=== PATIENT | male | born 1950 | race Caucasian/White ===

== ENCOUNTER 2021-06-05 14:02 | Observation (INO) | payer MEDICARE, SELFPAY ==
[2021-06-05 14:04] VITALS: BP 173/120; PULSE 61; RESP 18; TEMP 36.9; O2SAT 99; BMI 33.0
--- NOTE | 2021-06-05 14:17 | ECG_ITS ---
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 Measurements Intervals [place] Rate: 57 P: -6 VT: 171 QRS: 13 QRSD: 112 T: 53 QT: 411 QTc: 403 Interpretive Statements SINUS BRADYCARDIA MODERATE INTRAVENTRICULAR CONDUCTION DELAY [110+ ms QRS DURATION] No previous ECG available for comparison Electronically Signed On 06-07-2021 8:54:01 PROGRAM COORDINATOR by Jonathan Powell M.D. [id number]
[2021-06-05 14:19] VITALS: BP 165/96; PULSE 58; RESP 14; O2SAT 98
--- NOTE | 2021-06-05 14:51 | ECG_ITS ---
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 Measurements Intervals [place] Rate: 56 P: 3 SD: 174 QRS: 13 QRSD: 107 T: 59 QT: 409 QTc: 397 Interpretive Statements SINUS BRADYCARDIA Compared to ECG 06/05/2021 14:41:23 Intraventricular conduction delay no longer present Electronically Signed On 06-07-2021 8:53:58 SOLIDS CONTROL TECHNICIAN by Jonathan Powell M.D. [email or web address] [id number] f
[2021-06-05 14:57] LABS: Basophils % 0.7 %; Eosinophils # 0.2 10^3/uL (0.0-0.8); Hematocrit 49.4 % (42.0-52.0); Hemoglobin 16.6 g/dL (11.7-16.6); Lymphocytes # 1.4 10^3/uL (0.8-4.8); Lymphocytes % 25.3 %; Mean Corpuscular HGB Conc 33.6 g/dL (30.0-36.0); Mean Corpuscular Hemoglobin 31.7 pg (28.0-34.0); Mean Corpuscular Volume 94.5 fl (80-94); Mean Platelet Volume 10.1 fL (7.4-10.4); Monocytes # 0.5 10^3/uL (0.2-0.9); Neutrophils # 3.28 10^3/uL (1.8-7.7); Neutrophils % 60.6 %; Nucleated Red Blood Cells % 0 %; Platelet Count 261 10^3/cmm (130-400); Red Blood Count 5.23 10^6/uL (4.1-5.3); Red Cell Distribution Width 12.2 % (12.1-15.1); White Blood Count 5.4 10^3/uL (4.0-10.0)
--- NOTE | 2021-06-05 15:01 | ED_ITS ---
HPI - General Adult General: Chief complaint: Abdominal Pain Stated complaint: Chest pain Time Seen by Provider: 06/05/21 14:16 History of Present Illness: Patient is a 71-year-old male with history of high blood pressure who presents emergency with complaints of light-headedness, near syncope , chest pain, shortness of breath and generalized weakness since 1 PM this afternoon. Patient was at home recently called his son around 1 PM with complaints of the symptoms. Patient says he is not able to get up at home. Patient son called EMS patient was brought to the emergency room. On arrival, patient tells me that he has left upper quadrant dull pain with blurriness of vision. Patient reported mild transient chest pressure and shortness of breath. Patient not smoking, drug use or alcohol use. Patient tells me that recently his . For the last week or so he has been mourning his . Last week he had a trip and fell at home and has had complaints of generalized abdominal pain. Patient denies any nausea/vomiting fever/chills, diarrhea, melena hematochezia. Patient reports no cough, nasal congestion body ache. Onset:1pm Duration:ongoing Location:home Severity:moderate/severe Associated symptoms: Reports chest pain and dyspnea; Deny nausea, rash, palpitations or vomiting Review of Systems Const: Reports: other (+generalized weakness); Denies: fever(s) or chills Eyes: Denies: change in vision ENMT: Denies: mouth pain Card: Reports: chest pain; Denies: palpitations Resp: Reports: dyspnea; Denies: non-productive cough GI: Reports: abdominal pain (+LUQ); Denies: nausea, vomiting or diarrhea : Denies: dysuria Musc: Denies: extremity pain Skin/Breast: Denies: rash or new lesions Neuro: Denies: weakness in extremities Psych: Reports: other (Normal mood) Angel/Lymph: Denies: easy bruising PFSH ED PFSH: Medical History (Updated 06/05/21 @ 15:04 by Annette Slaughter MD) Hypertension Social History (Updated 06/05/21 @ 15:04 by Annette Slaughter MD) Smoking and tobacco status: never smoked Alcohol intake: never Substance/Drug Use: never Physical Exam Const: COMMON NORMALS: alert HENMT: COMMON NORMALS: atraumatic HEAD & SCALP: atraumatic MOUTH: moist mucous membranes not abnormal Eye: COMMON NORMALS: EOMs intact bilaterally and conjunctivae normal CONJUNCTIVA: Yes conjunctivae normal Neck/C-Spine: COMMON NORMALS: full ROM and supple Resp: COMMON NORMALS: normal respiratory effort and clear to auscultation bilaterally AUSCULTATION: clear to auscultation bilaterally Cardio: COMMON NORMALS: regular rate RATE: regular rate OTHER: 2+ UE pulses b/l GI: COMMON NORMALS: Soft to palpation and non-tender PALPATION: Yes Soft to palpation Extremity: COMMON NORMALS: full ROM Neuro: SENSORIUM/ORIENTATION: Yes alert MOTOR EXAM: No Abnormal motor strength present and Other motor observations present (no focal motor deficits) Psych: COMMON NORMALS: speech normal SPEECH: Yes normal speech MOOD & AFFECT: Yes euthymic mood Course Vital Signs: Vital signs: Vital Signs Temperature 98.5 F 06/05/21 14:04 Pulse Rate 59 L 06/05/21 16:36 Respiratory Rate 16 06/05/21 16:36 Blood Pressure 180/98 06/05/21 16:36 Pulse Oximetry 99 06/05/21 16:36 [facility] - General Adult Medical Decision Making 71-year-old male with history of hypertension who presents the emergency room with complaints of lightheadedness, fatigue, near syncope since 1 PM. Arrival, patient has no complaints of chest pain. Patient is noted to hemodynamically stable and regular rhythm with mild bradycardia. EKG does not appear to show any signs of ischemia. Troponin x1 within normal limit. Have attempted on multiple occasions to give patient to ambulate however patient felt lightheaded upon ambulation. I performed shared decision making with patient and family, given concerns for multiple episodes of syncope, patient elects to stay in the hospital for echo and stress test. He verbalized understanding at it is weekend may not be stressed until Monday. Disposition: admission Lab Data : 06/05/21 14:33 06/05/21 14:33 Radiology Impressions Abdomen/Pelvis CT 06/05/21 15:36 IMPRESSION: 1. No acute abnormality identified in the abdomen or pelvis. 2. 8 mm nonobstructing left renal calculus. COMMENTS: Consistent with the [employer]'s Incidental Findings Committee white paper (J Am Aimee Radiol 2018): Any incidental renal lesion less than 1 cm or classified as too small to characterize, or any incidental cystic renal lesion characterized as simple-appearing, is likely benign. No follow-up imaging is recommended for these lesions per consensus recommendations based on imaging criteria. Laboratory Results WBC 5.4 10^3/uL (4.0-10.0) 06/05/21 14: RBC 5.23 10^6/uL (4.1-5.3) 06/05/21 14: Hgb 16.6 g/dL (11.7-16.6) 06/05/21 14: Hct 49.4 % (42.0-52.0) 06/05/21 14: MCV 94.5 fl (80-94) H 06/05/21 14: MCH 31.7 pg (28.0-34.0) 06/05/21 14: MCHC 33.6 g/dL (30.0-36.0) 06/05/21: RDW 12.2 % (12.1-15.1) 06/05/21 14: Plt Count 261 10^3/cmm (130-400) 06/05/21 14: MPV 10.1 fL (7.4-10.4) 06/05/21 14: Neut % (Auto) 60.6 % 06/05/21 14:33 Lymph % (Auto) 25.3 % 06/05/21 14:33 [place] % (Auto) 10.0 % 06/05/21 14: Eos % (Auto) 3.0 % 06/05/21 14: Baso % (Auto) 0.7 % 06/05/21: Neut # (Auto) 3.28 10^3/uL (1.8-7.7) 06/05/21 14: Lymph # (Auto) 1.4 10^3/uL (0.8-4.8) 06/05/21 14: [place] # (Auto) 0.5 10^3/uL (0.2-0.9) 06/05/21 14: Eos # (Auto) 0.2 10^3/uL (0.0-0.8) 06/05/21 14: Baso # (Auto) 0.0 10^3/uL (0.0-0.1) 06/05/21 14:33 Nucleated RBC % (auto) 0 % 06/05/21 14:33 Nucleated RBCs # 0.0 /100WBC 06/05/21 14:33 Sodium 139 mmol/L (136-145) 06/05/21 14:33 Potassium 4.1 mmol/L (3.5-5.1) 06/05/21 14:33 Chloride 104 mmol/L (98-107) 06/05/21 14:33 Carbon Dioxide 21 mmol/L (22-29) L 06/05/21 14:33 Anion Gap 18.1 (5-19) 06/05/21 14:33 BUN 11 mg/dL (8-23) 06/05/21 14:33 Creatinine 1.0 mg/dL (0.7-1.2) 06/05/21 14:33 GFR Calculation 73.9 mL/min (90-130) L 06/05/21 14:33 Glucose 105 mg/dL (65-115) 06/05/21 14:33 Calculated Osmolality 288 mOsm/kg (285-295) 06/05/21 14:33 Calcium 8.7 mg/dL (8.5-10.5) 06/05/21 14:33 Total Bilirubin 0.4 mg/dL (0.15-1.2) 06/05/21 14:33 AST 21 U/L (0-40) 06/05/21 14:33 ALT 33 U/L (0-41) 06/05/21 14:33 Alkaline Phosphatase 86 IU/L (40-130) 06/05/21 14:33 Troponin T Baseline 8 ng/L (0-15) 06/05/21 14:33 Total Protein 7.1 g/dL (6.6-8.7) 06/05/21 14:33 Albumin 4.3 g/dL (3.5-5.2) 06/05/21 14:33 Globulin 2.8 g/dL (1.3-4.6) 06/05/21 14:33 Lipase 17 U/L (13-60) 06/05/21 14:33 Urine Color Yellow (Yellow) 06/05/21 15:46 Urine Appearance Clear (CLEAR) 06/05/21 15:46 Urine pH 6 (5-7) 06/05/21 15:46 Ur Specific [place] 1.005 (1.005-1.030) 06/05/21 15:46 Urine Protein Neg (Negative) 06/05/21 15:46 Urine Glucose (UA) Norm (Normal) 06/05/21 15:46 Urine Ketones Negative (Negative) 06/05/21 15:46 Urine Blood Neg (Negative) 06/05/21 15:46 Urine Nitrate Negative (Negative) 06/05/21 15:46 Urine Bilirubin Neg (Negative) 06/05/21 15:46 Urine Urobilinogen Norm mg/dL (Negative) 06/05/21 15:46 Ur Leukocyte Esterase Negative (Negative) 06/05/21 15:46 Imaging Data Other Imaging: Radiologist's impression: [email or web address] [address] [address] [address] Scan Report Signed Patient: Danilo Thornton Unit #: [id number] : 1950 Age/Sex: 71 / M ADM Date: 06/05/21 Loc: ER Room/Bed: Attending Dr: Ordering Provider/Ordering MD: Annette Slaughter MD Date of Service: 06/05/21 Procedure(s): CT abdomen pelvis w con* [id number] Accession Number(s): [id number] Report Number: [id number] PROCEDURE INFORMATION: Exam: CT Abdomen And Pelvis With Contrast Exam date and time: 06/05/2021 3:36 PM Age: 71 years old Clinical indication: Abdominal pain; Localized; Lower; Additional info: Eval abd pain TECHNIQUE: Imaging protocol: Computed tomography of the abdomen and pelvis with contrast. Radiation optimization: All CT scans at this facility use at least one of these dose optimization techniques: automated exposure control; mA and/or kV adjustment per patient size (includes targeted exams where dose is matched to clinical indication); or iterative reconstruction. Contrast material: OMNI 300; Contrast volume: 95 ml; Contrast route: INTRAVENOUS (IV);? COMPARISON: No relevant prior studies available. RADIATION DOSE METRICS: Total DLP (mGy-cm): 1822.15 FINDINGS: Heart: Coronary artery calcifications. Liver: Normal. No mass. Gallbladder and bile ducts: Partially contracted gallbladder. The bile ducts are normal. Pancreas: Normal. No ductal dilation. Spleen: Normal. No splenomegaly. Adrenal glands: Normal. No mass. Kidneys and ureters: Fluid density cysts in the left kidney, Hounsfield units less than 20. Small cortical lesion in the right kidney is too small to characterize but is most likely a cyst. No follow-up imaging recommended. 8 mm calculus in the inferior left kidney. No ureteral calculus or hydronephrosis. Stomach and bowel: Unremarkable. No obstruction. No mucosal thickening. Appendix: Appendix Intraperitoneal space: Unremarkable. No free air. No significant fluid collection. Vasculature: Arterial calcifications. No aneurysm. Lymph nodes: Unremarkable. No enlarged lymph nodes. Urinary bladder: Unremarkable as visualized. Reproductive: Mildly enlarged inhomogenous prostate. Bones/joints: Degenerative changes of the spine. No fracture. Soft tissues: Small fat containing umbilical hernia. CT/CT abdomen pelvis w con* [id number] IMPRESSION: 1. No acute abnormality identified in the abdomen or pelvis. 2. 8 mm nonobstructing left renal calculus. ? COMMENTS: Consistent with the [employer]'s Incidental Findings Committee white paper (J Am Aimee Radiol 2018): Any incidental renal lesion less than 1 cm or classified as too small to characterize, or any incidental cystic renal lesion characterized as simple-appearing, is likely benign. No follow-up imaging is recommended for these lesions per consensus recommendations based on imaging criteria. ? Dictated By: Fransisco Basilio Signed By: Fransisco Basilio Signed Date/Time: 06/05/21 1632 DD/ 1536 Discharge Plan Discharge Prescriptions: No Action tamsulosin 0.4 mg capsule 0.4 mg PO BEDTIME 0RF pantoprazole 40 mg tablet,delayed release (DR/EC) 40 mg PO BID 0RF losartan-hydrochlorothiazide 50-12.5 mg tablet 1 tab PO DAILY 0RF metoprolol tartrate 25 mg tablet 25 mg PO BID 0RF aspirin 81 mg Capsule 81 mg PO DAILY 0RF Coding Level of Care Code ED Paint Maker for Chg Fwd Exam Comprehensive
[2021-06-05 15:13] LABS: Troponin(5th) Baseline 8 ng/L (0-15)
[2021-06-05 15:14] LABS: Alanine Aminotransferase 33 U/L (0-41); Albumin Level 4.3 g/dL (3.5-5.2); Alkaline Phosphatase 86 IU/L (40-130); Blood Urea Nitrogen 11 mg/dL (8-23); Calcium 8.7 mg/dL (8.5-10.5); Carbon Dioxide 21 mmol/L (22-29); Chloride 104 mmol/L (98-107); Globulin 2.8 g/dL (1.3-4.6); Glomerular Filtration Rate 73.9 mL/min (90-130); Glucose 105 mg/dL (65-115); Lipase 17 U/L (13-60); Osmolality Calculated 288 mOsm/kg (285-295); Sodium 139 mmol/L (136-145); Total Bilirubin 0.4 mg/dL (0.15-1.2); Total Protein 7.1 g/dL (6.6-8.7)
[2021-06-05 15:26] VITALS: BP 152/87; PULSE 54; RESP 14; O2SAT 96
[2021-06-05 15:29] LABS: Anion Gap 18.1 (5-19); Aspartate Amino Transferase 21 U/L (0-40); Potassium 4.1 mmol/L (3.5-5.1)
--- NOTE | 2021-06-05 15:36 | CTR_ITS ---
PROCEDURE INFORMATION: Exam: CT Abdomen And Pelvis With Contrast Exam date and time: 06/05/2021 3:36 PM Age: 71 years old Clinical indication: Abdominal pain; Localized; Lower; Additional info: Eval abd pain TECHNIQUE: Imaging protocol: Computed tomography of the abdomen and pelvis with contrast. Radiation optimization: All CT scans at this facility use at least one of these dose optimization techniques: automated exposure control; mA and/or kV adjustment per patient size (includes targeted exams where dose is matched to clinical indication); or iterative reconstruction. Contrast material: OMNI 300; Contrast volume: 95 ml; Contrast route: INTRAVENOUS (IV); COMPARISON: No relevant prior studies available. RADIATION DOSE METRICS: Total DLP (mGy-cm): 1822.15 FINDINGS: Heart: Coronary artery calcifications. Liver: Normal. No mass. Gallbladder and bile ducts: Partially contracted gallbladder. The bile ducts are normal. Pancreas: Normal. No ductal dilation. Spleen: Normal. No splenomegaly. Adrenal glands: Normal. No mass. Kidneys and ureters: Fluid density cysts in the left kidney, Hounsfield units less than 20. Small cortical lesion in the right kidney is too small to characterize but is most likely a cyst. No follow-up imaging recommended. 8 mm calculus in the inferior left kidney. No ureteral calculus or hydronephrosis. Stomach and bowel: Unremarkable. No obstruction. No mucosal thickening. Appendix: Appendix Intraperitoneal space: Unremarkable. No free air. No significant fluid collection. Vasculature: Arterial calcifications. No aneurysm. Lymph nodes: Unremarkable. No enlarged lymph nodes. Urinary bladder: Unremarkable as visualized. Reproductive: Mildly enlarged inhomogenous prostate. Bones/joints: Degenerative changes of the spine. No fracture. Soft tissues: Small fat containing umbilical hernia. CT/CT abdomen pelvis w con* [id number] IMPRESSION: 1. No acute abnormality identified in the abdomen or pelvis. 2. 8 mm nonobstructing left renal calculus. COMMENTS: Consistent with the [place] [employer]'s Incidental Findings Committee white paper (J Am Aimee Radiol 2018): Any incidental renal lesion less than 1 cm or classified as too small to characterize, or any incidental cystic renal lesion characterized as simple-appearing, is likely benign. No follow-up imaging is recommended for these lesions per consensus recommendations based on imaging criteria.
[2021-06-05] MEDS: iohexol 300 mg/mL 100 mL Btl IV (15:51)
[2021-06-05 16:04] LABS: Add Urine Microscopic? NO; Charge for UA Resulting for Rev
[2021-06-05 16:16] LABS: Bilirubin Urine Neg (Negative); Blood Urine Neg (Negative); Glucose Urine UA Norm (Normal); Ketones Urine Negative (Negative); Leukocyte Esterase Urine Negative (Negative); Nitrate Urine Negative (Negative); Protein Urine Neg (Negative); Specific Gravity, Urine 1.005 (1.005-1.030); Urine Appearance Clear (CLEAR); Urine Color Yellow (Yellow); Urobilinogen Urine Norm (Negative); pH Urine 6 (5-7)
--- NOTE | 2021-06-05 16:17 | ECG_ITS ---
[facility] Test Date: 2021-06-05 Pat Name: Danilo Thornton Department: Room: Gender: Male Sap Bw Bi Developer: : 1950 Requested By: Annette Slaughter Order Number: [id number] Srinivas MD: Jonathan Powell M.D. Measurements Intervals [place] Rate: 55 P: 0 IA: 177 QRS: -14 QRSD: 111 T: 49 QT: 417 QTc: 400 Interpretive Statements SINUS BRADYCARDIA MODERATE INTRAVENTRICULAR CONDUCTION DELAY [110+ ms QRS DURATION] Compared to ECG 06/05/2021 14:41:23 No significant changes Electronically Signed On 06-07-2021 9:03:20 CHIEF TRANSFER AND PUMPHOUSE OPERATOR by Jonathan Powell M.D. [id number]
[2021-06-05 16:36] VITALS: BP 180/98; PULSE 59; RESP 16; O2SAT 99
--- NOTE | 2021-06-05 16:50 | XRR_ITS ---
PROCEDURE INFORMATION: Exam: XR Chest Exam date and time: 06/05/2021 4:50 PM Age: 71 years old Clinical indication: Pain; Chest pressure; Additional info: Chest pain TECHNIQUE: Imaging protocol: XR of the chest. Views: 1 view. COMPARISON: CT abdomen pelvis w con* [id number] 06/05/2021 3:50 PM FINDINGS: Lungs: Unremarkable. No consolidation. Pleural spaces: Unremarkable. No pleural effusion. No pneumothorax. Heart/Mediastinum: Unremarkable. No cardiomegaly. Bones/joints: Unremarkable. XR/XR chest 1V portable [id number] IMPRESSION: No acute findings.
--- NOTE | 2021-06-05 16:55 | CTR_ITS ---
PROCEDURE INFORMATION: Exam: CT Head Without Contrast Exam date and time: 06/05/2021 4:55 PM Age: 71 years old Clinical indication: Dizziness; Additional info: Eval for pathologies TECHNIQUE: Imaging protocol: Computed tomography of the head without contrast. Radiation optimization: All CT scans at this facility use at least one of these dose optimization techniques: automated exposure control; mA and/or kV adjustment per patient size (includes targeted exams where dose is matched to clinical indication); or iterative reconstruction. COMPARISON: No relevant prior studies available. RADIATION DOSE METRICS: Total DLP (mGy-cm): 971.84 FINDINGS: Brain: Mild cortical volume loss, appropriate for patient age. No abnormal brain attenuation. No intracranial hemorrhage. Cerebral ventricles: No ventriculomegaly. Paranasal sinuses: Mucosal thickening in the left sphenoid sinus. The other sinuses are clear. Mastoid air cells: Visualized mastoid air cells are well aerated. Bones/joints: Unremarkable. No acute fracture. Soft tissues: Small lipoma in the left occipital scalp. The soft tissues are otherwise unremarkable. CT/CT head wo con* [id number] IMPRESSION: 1. No acute intracranial abnormality.
[2021-06-05] MEDS: sodium chloride 0.9% 1,000 ML 999 ML IV (17:15)
[2021-06-05] MEDS: hyDRALAzine 20 mg/mL INJ 1 mL 10 MG IVP (17:18)
[2021-06-05 17:46] LABS: Troponin 5 2HR 9.05 ng/L (0-15)
[2021-06-05 18:05] LABS: Troponin 5 2HR Delta 1.05 ABS# (0-10)
[2021-06-05 18:35] LABS: Adenovirus Not Detected (NOT DETECT); Chlamydia Pneumoniae Not Detected (NOT DETECT); Coronavirus 229E,HKU1,NL63,OC4 Not Detected (NOT DETECT); Human Metapneumovirus Not Detected (NOT DETECT); Human Rhinovirus/Enterovirus Not Detected (NOT DETECT); Influenza A Not Detected (NOT DETECT); Influenza A H1 Not Detected (NOT DETECT); Influenza A H1-2009 Not Detected (NOT DETECT); Influenza A H3 Not Detected (NOT DETECT); Influenza B Not Detected (NOT DETECT); Mycoplasma Pneumoniae Not Detected (NOT DETECT); Parainfluenza Virus Type 1 Not Detected (NOT DETECT); Parainfluenza Virus Type 2 Not Detected (NOT DETECT); Parainfluenza Virus Type 3 Not Detected (NOT DETECT); Parainfluenza Virus Type 4 Not Detected (NOT DETECT); Respiratory Syncytial Virus A Not Detected (NOT DETECT); Respiratory Syncytial Virus B Not Detected (NOT DETECT); SARS-COV-2 Not Detected (NOT DETECT)
[2021-06-05 19:18] VITALS: BP 156/81; PULSE 53; RESP 19; O2SAT 98
--- NOTE | 2021-06-05 20:28 | PM.HP ---
Providers/Chief Complaint Admitting Physician: Mohini Adamson MD Chief Complaint: Chest pain History of Present Illness Danilo Thornton is a 71 year old male with a past medical history of hypertension, hyperlipidemia, GERD who presents to [facility] due to lightheadedness, dizziness, presyncope. Patient tells me that today at roughly 2:30 PM, he was getting up from his chair, when when he got up he felt lightheaded, uneasy, no preceding chest pain, no palpitations, shortness of breath, no paresthesias, no focal weakness, no facial droop no slurring of his words, he felt everything white out, denies falling down, denies head trauma, but felt like he was in a pass out but never passed out. He tells me that this is happened a couple times in the last few months. Patient tells me that he has been under a lot of stress over the last few years to months because his has been sick. Unfortunately on May 26, 2021, she , he is quite distraught, becomes quite emotional starts to cry, he tells me that they were for about 47 years, he loved her, she used to take care of him, but when she got sick he was primarily taking care of her, he did not have time for himself, now that she is gone, he lives by himself, he has 3 kids. Denies any cardiovascular history. Denies history of strokes. No history of lung disease. No history of smoking. No history of diabetes. No history of cardiac arrhythmias. Patient's work-up in the emergency room was relatively unremarkable, no significant electrolyte abnormalities, no significant opponent elevation, EKG shows sinus bradycardia, intraventricular conduction delay, CT head no acute findings, UA unremarkable, chest x-ray no focal pneumonia, Covid negative. During my examination, during my conversation with him, I was monitoring the color television console monitor, and did notice a couple sinus pauses, longest measuring 1 second, he was asymptomatic during these events Review of Systems Const: Denies: fever(s), chills, fatigue or malaise Eyes: Reports: change in vision and blurry vision ENMT: Denies: nasal congestion Card: Reports: lightheadedness and pre-syncope; Denies: chest pain, palpitations, dyspnea on exertion or orthopnea Resp: Denies: dyspnea, productive cough, non-productive cough or wheezing GI: Denies: abdominal pain, nausea, vomiting, hematemesis, diarrhea, constipation, hematochezia or melena : Denies: flank pain, difficulty urinating, dysuria or urinary frequency Musc: Denies: neck pain or back pain Skin/Breast: Denies: rash Neuro: Reports: dizziness; Denies: headache(s) or vertigo Psych: Denies: anxiety or depression Endo: Denies: polyuria or polydipsia Medications/Allergies Home Medications Medication Instructions Recorded Confirmed Last Taken Type aspirin 81 mg capsule 81 mg PO DAILY 06/05/21 06/05/21 Unknown History losartan 50 mg-hydrochlorothiazide 1 tab PO DAILY 06/05/21 06/05/21 Unknown History 12.5 mg tablet metoprolol tartrate 25 mg tablet 25 mg PO BID 06/05/21 06/05/21 Unknown History pantoprazole 40 mg tablet,delayed 40 mg PO BID 06/05/21 06/05/21 Unknown History release tamsulosin 0.4 mg capsule 0.4 mg PO BEDTIME 06/05/21 06/05/21 Unknown History Allergies Allergy/AdvReac Type Severity Reaction Status Date / Time No Known Allergies Allergy Unverified 06/05/21 16:25 PFSH Acute PFSH: Medical History (Updated 06/05/21 @ 20:35 by Roderick Streeter MD) Hypertension Surgical History (Updated 06/05/21 @ 20:33 by Roderick Streeter MD) History of vasectomy Family History (Updated 06/05/21 @ 20:34 by Roderick Streeter MD) Mother CAD (coronary artery disease) Social History (Updated 06/05/21 @ 15:04 by Annette Slaughter MD) Smoking and tobacco status: never smoked Alcohol intake: never Substance/Drug Use: never Vitals/I&O/Wt Last Vital Signs Temp 98.5 F 06/05/21 14:04 Pulse 53 L 06/05/21 19:18 Resp 19 H 06/05/21 19:18 BP 156/81 06/05/21 19:18 Pulse Ox 98 06/05/21 19:18 Weight last 48 hrs Weight 104.326 kg Physical Exam Const: COMMON NORMALS: no acute distress and patient oriented x3 HENMT: COMMON NORMALS: normocephalic HEAD & SCALP: normocephalic Eye: COMMON NORMALS: Equal, round and reactive pupils present and EOMs intact bilaterally Neck/C-Spine: COMMON NORMALS: no JVD Lymph: LYMPHATIC: no lymphadenopathy noted Chest: COMMONS NORMALS: normal inspection of the chest Resp: COMMON NORMALS: normal respiratory effort, No retractions, No use of accessory muscles and clear to auscultation bilaterally AUSCULTATION: clear to auscultation bilaterally Cardio: COMMON NORMALS: no JVD, regular rhythm, S1 normal heart sound present and S2 normal heart sound present RATE: bradycardic RHYTHM: regular rhythm HEART SOUNDS: S1 normal heart sound present and S2 normal heart sound present GI: COMMON NORMALS: Normal to inspection, nondistended, normoactive bowel sounds present, Soft to palpation, non-tender, No hepatosplenomegaly present, no masses and no bruits PALPATION: Yes Soft to palpation and Yes No hepatosplenomegaly present Extremity: COMMON NORMALS: capillary refill normal, no clubbing, cyanosis or edema, no calf tenderness and no pedal edema Neuro: COMMON NORMALS: patient oriented x3, CN's II-XII intact bilaterally, moves all extremities, no focal motor deficits and no sensory deficits noted SENSORIUM/ORIENTATION: Yes alert, Yes oriented to person, Yes oriented to place and Yes oriented to time Psych: COMMON NORMALS: mental status grossly normal Data : 06/05/21 14:33 06/05/21 14:33 A&P Assessment and plan (1) Near syncope: Status: Acute (2) Hypertension: Status: Acute (3) Sinus bradycardia: Status: Acute (4) Sinus pause: Status: Acute (5) Light headedness: Status: Acute Plan Presyncope -We will check orthostatic vitals -Continue telemetry monitoring -Cardiac echo -Telemetry monitoring -IV hydration Sinus bradycardia, possibly secondary to beta-blockade, stop beta-tye Sinus pause, seen on telemetry, possibly second to beta-tye, stop beta-tye, possibly might require event monitor on discharge Bereavement, passing away less than 10 days ago, will consider anxiety and depression medication Full code Lovenox for DVT prophylaxis Attestations Medical Necessity Statement*: Patient requires hospitalization, outpatient with observation, for presyncope, sinus bradycardia, sinus pause Coding Level of Care Code Acute Vehicle Check In Clerk for g Fwd Diagnoses Near syncope R55 Hypertension I10 Sinus bradycardia R00.1 Sinus pause I45.5 Light headedness R42
[2021-06-05 20:34] LABS: Troponin 5 6HR 9.35 ng/L (0-15)
[2021-06-05 20:38] LABS: Troponin 5 6HR Delta 1.35 ng/L (0-12)
[2021-06-05 21:18] VITALS: BP 150/87; PULSE 61; RESP 23; O2SAT 96
[2021-06-05] MEDS: dextrose 5%-sod chloride 0.45% 1,000 ML 100 ML IV (21:37)
[2021-06-05] MEDS: tamsulosin 0.4 mg Capsule PO (22:40)
--- NOTE | 2021-06-05 22:56 | PC.NURSE ---
preferred and and sleep habit pt states he likes to go by [place], and sleeps with several pillows.
--- NOTE | 2021-06-05 22:57 | PC.NURSE ---
code status when discussing pt code status during the admission assessment, pt stated he did not want to be a full code. he did not want to be 'a vegetable'. pt stated he did not want a machine breathing for him. pt stated he wanted minimal intervention. attempt made to consult hospitalist; will attempt again.
[2021-06-06] VITALS: PULSE 59; O2SAT 98
[2021-06-06] MEDS: enoxaparin 40 mg/0.4 mL Syringe SUBCUT (01:38)
[2021-06-06 05:04] VITALS: BP 150/98; PULSE 71; RESP 17; O2SAT 97
[2021-06-06 05:10] LABS: Basophils % 0.4 %; Eosinophils # 0.1 10^3/uL (0.0-0.8); Eosinophils % 1.4 %; Hematocrit 46.8 % (42.0-52.0); Hemoglobin 16.1 g/dL (11.7-16.6); Lymphocytes # 1.9 10^3/uL (0.8-4.8); Lymphocytes % 25.8 %; Mean Corpuscular HGB Conc 34.4 g/dL (30.0-36.0); Mean Corpuscular Hemoglobin 32.1 pg (28.0-34.0); Mean Corpuscular Volume 93.2 fl (80-94); Mean Platelet Volume 10.2 fL (7.4-10.4); Monocytes # 0.6 10^3/uL (0.2-0.9); Monocytes % 8.7 %; Neutrophils # 4.58 10^3/uL (1.8-7.7); Neutrophils % 63.4 %; Nucleated Red Blood Cells % 0 %; Platelet Count 255 10^3/cmm (130-400); Red Blood Count 5.02 10^6/uL (4.1-5.3); Red Cell Distribution Width 11.9 % (12.1-15.1); White Blood Count 7.2 10^3/uL (4.0-10.0)
[2021-06-06 05:24] LABS: Estmated Average Glucose 111; Hemoglobin A1C 5.5 % (4.0-6.0)
[2021-06-06 05:25] LABS: Lactic Sepsis W/Reflex 1.7 mmol/L (0.5-2.2)
[2021-06-06 05:40] LABS: NT Pro B Type Natriuretic Pept 272 pg/mL (0-125); Procalcitonin 0.05 ng/mL (0-0.5); Thyroid Stimulating Hormone 1.85 uIU/mL (0.27-4.20)
[2021-06-06 05:45] LABS: INR 0.95 (0.8-1.2)
[2021-06-06 05:51] LABS: Alanine Aminotransferase 29 U/L (0-41); Albumin Level 4.1 g/dL (3.5-5.2); Alkaline Phosphatase 79 IU/L (40-130); Anion Gap 14.8 (5-19); Aspartate Amino Transferase 16 U/L (0-40); Blood Urea Nitrogen 9 mg/dL (8-23); Calcium 9.5 mg/dL (8.5-10.5); Carbon Dioxide 23 mmol/L (22-29); Chloride 104 mmol/L (98-107); Chol HDL Ratio 3.21 mg/dL (1.0-5.00); Cholesterol 154 mg/dL (0-200); Globulin 3.1 g/dL (1.3-4.6); Glomerular Filtration Rate 95.6 mL/min (90-130); Glucose 109 mg/dL (65-115); HDL Cholesterol 48 mg/dL (60-100); LDL Cholesterol Calculated 72 mg/dL (50-129); Magnesium 2.2 mg/dL (1.7-2.3); Osmolality Calculated 285 mOsm/kg (285-295); Phosphorus 2.4 mg/dL (2.5-4.5); Potassium 3.8 mmol/L (3.5-5.1); Sodium 138 mmol/L (136-145); Total Bilirubin 0.5 mg/dL (0.15-1.2); Total Protein 7.2 g/dL (6.6-8.7); Triglycerides 171 mg/dL (0-150)
[2021-06-06 08:27] VITALS: BP 150/98; PULSE 64; RESP 21; O2SAT 97
[2021-06-06] MEDS: dextrose 5%-sod chloride 0.45% 1,000 ML 100 ML IV (08:51)
[2021-06-06 09:07] VITALS: BP 150/98
[2021-06-06] MEDS: aspirin 81 mg Chew Tablet PO (09:07)
[2021-06-06] MEDS: hydroCHLOROthiazide 25 mg Tablet 12.5 MG PO (09:07)
[2021-06-06] MEDS: losartan 50 mg Tablet PO (09:07)
[2021-06-06] MEDS: pantoprazole DR 40 mg Tablet PO (09:08)
[2021-06-06] MEDS: polyethylene glycol 3350 Pkt 17 gm PO (09:34)
[2021-06-06 09:41] VITALS: BP 150/99; BP 162/96; BP 165/94; PULSE 70; PULSE 71; PULSE 74
--- NOTE | 2021-06-06 09:44 | PC.NURSE ---
Orthostatic VS performed and charted. Pt ambulated to restroom following orthostatic VS with steady gait, unassisted. He is CAOx4 with no neuro deficits.
--- NOTE | 2021-06-06 09:52 | PC.NURSE ---
After miralax patient had a very large BM; states feels much better.
--- NOTE | 2021-06-06 11:50 | PM.DCS ---
Discharge Providers Date of Admission: 06/05/21 16:56 Date of Discharge: June 06, 2021 Attending Provider at Admission: Mohini Adamson MD Attending Provider at Discharge: [place] Diagnoses at Discharge Discharge Diagnosis (1) Near syncope: Status: Acute (2) Hypertension: Status: Acute (3) Sinus bradycardia: Status: Acute (4) Sinus pause: Status: Acute (5) Light headedness: Status: Acute Reason for Visit Reason for Visit: Chest pain Hospital Course Hospital Course Pleasant 71-year-old gentleman with history of hypertension, nonobstructive heart disease status post cardiac cath not requiring intervention, was admitted for assessment of management following episode of lightheadedness, dizziness and presyncope. Reported while rising from a chair. In the hospital orthostatic vital signs were assessed, not found to be orthostatic, on monitoring noted to be having episodes of bradycardia down as low as 50 bpm, and early on reported to have noted sinus pauses, longest measuring 1 second. Metoprolol was stopped. He is being referred for cardiac event monitor to continue monitoring after discharge. Other antihypertensives are continued, with blood pressures variable, but coming down to 150s/90s, may benefit from continued optimization if persistently remain elevated after discharge from ER. He also reported bereavement after recent loss of his . Please follow-up on his condition. Due to additional finding of left carotid artery atherosclerosis with moderate stenosis of 50-69%, his atorvastatin dose is increased to 40 mg nightly. Please continue to assist him in optimizing risk factors of cardiovascular disease. Echocardiogram obtained in the hospital was discussed with him, of not optimal quality, grossly with normal ejection fraction, no pericardial effusion, grade 1 diastolic dysfunction. Dilated aortic root. In case of recurrent/persistent symptoms, please refer for echocardiogram with contrast. Troponin series not suggestive of acute PR. NT proBNP minimally abnormal at 272. Other tests included an unremarkable head CT. Unremarkable chest x-ray. CT abdomen pelvis without acute abnormality, with noted incidentally 8 mm nonobstructing left renal calculus. COVID-19 PCR was negative. Unremarkable UA, normal TSH. Normal lipase and nonelevated procalcitonin. Physical Exam Const: COMMON NORMALS: no acute distress and patient oriented x3 NUTRITIONAL APPEARANCE: overweight HENMT: COMMON NORMALS: oropharynx normal Neck/C-Spine: COMMON NORMALS: no JVD Resp: COMMON NORMALS: normal respiratory effort and clear to auscultation bilaterally AUSCULTATION: clear to auscultation bilaterally Cardio: COMMON NORMALS: no JVD, regular rhythm, S1 normal heart sound present, S2 normal heart sound present and No murmurs present (Cardio) RHYTHM: regular rhythm HEART SOUNDS: S1 normal heart sound present and S2 normal heart sound present GI: COMMON NORMALS: Normal to inspection, nondistended, normoactive bowel sounds present, Soft to palpation and non-tender PALPATION: Yes Soft to palpation Extremity: COMMON NORMALS: no joint enlargement and no pedal edema Neuro: COMMON NORMALS: patient oriented x3 and moves all extremities Skin: COMMON NORMALS: no rashes or lesions noted GENERAL SKIN EXAM: no rashes or lesions noted Discharge Data Studies Completed and Pending Completed Studies During Hospitalization Category Date Time Status CT abdomen pelvis w con* [id number] Urgent Cat Scan 06/05/21 15:[address] head wo con* [id number] Urgent Cat Scan 06/05/21 16:55 Completed XR chest 1V portable [id number] Urgent Exams 06/05/21 16:50 Completed CV carotid duplex BI* [id number] Routine Ultrasound 06/06/21 21:18 Completed Pending at discharge Category Date Time Status Comprehensive Metabolic Panel AM LABS Lab 06/07/21 04:00 Ordered Comprehensive Metabolic Panel AM LABS Lab 06/08/21 04:00 Ordered Magnesium AM LABS Lab 06/07/21 04:00 Ordered Magnesium AM LABS Lab 06/08/21 04:00 Ordered Phosphorus AM LABS Lab 06/07/21 04:00 Ordered Phosphorus AM LABS Lab 06/08/21 04:00 Ordered Prothrombin Time INR AM LABS Lab 06/07/21 04:00 Ordered Prothrombin Time INR AM LABS Lab 06/08/21 04:00 Ordered CV. echo complete* [id number] Routine Ultrasound 06/06/21 21:18 Taken Radiology Impressions Abdomen/Pelvis CT 06/05/21 15:36 IMPRESSION: 1. No acute abnormality identified in the abdomen or pelvis. 2. 8 mm nonobstructing left renal calculus. COMMENTS: Consistent with the [employer]'s Incidental Findings Committee white paper (J Am Aimee Radiol 2018): Any incidental renal lesion less than 1 cm or classified as too small to characterize, or any incidental cystic renal lesion characterized as simple-appearing, is likely benign. No follow-up imaging is recommended for these lesions per consensus recommendations based on imaging criteria. Chest X-Ray 06/05/21 16:50 IMPRESSION: No acute findings. Head CT 06/05/21 16:55 IMPRESSION: 1. No acute intracranial abnormality. Carotid Doppler Study 06/06/21 21:18 IMPRESSION: 1. There is soft atherosclerotic plaque in the left carotid bulb and proximal internal carotid artery with mildly elevated velocities consistent with moderate 50-69% stenosis. 2. Mild plaque in the proximal right internal carotid artery with mild stenosis. REFERENCES: SRU CRITERIA. The degree of internal carotid artery stenosis is based on criteria defined by the Society of Radiologists in Ultrasound (SRU). Normal is no stenosis. Mild is less than 50% stenosis. Moderate is 50-69% stenosis. Severe is greater than 69% stenosis to near occlusion. Near occlusion is a markedly narrowed lumen. Total occlusion is no detectable patent lumen. Laboratory Results WBC 7.2 10^3/uL (4.0-10.0) 06/06/21 04:47 RBC 5.02 10^6/uL (4.1-5.3) 06/06/21 04:47 Hgb 16.1 g/dL (11.7-16.6) 06/06/21 04:47 Hct 46.8 % (42.0-52.0) 06/06/21 04:47 MCV 93.2 fl (80-94) 06/06/21 04:47 MCH 32.1 pg (28.0-34.0) 06/06/21 04:47 MCHC 34.4 g/dL (30.0-36.0) 06/06/21 04:47 RDW 11.9 % (12.1-15.1) L 06/06/21 04:47 Plt Count 255 10^3/cmm (130-400) 06/06/21 04:47 MPV 10.2 fL (7.4-10.4) 06/06/21 04:47 Neut % (Auto) 63.4 % 06/06/21 04:47 Lymph % (Auto) 25.8 % 06/06/21 04:47 Carbon % (Auto) 8.7 % 06/06/21 04:47 Eos % (Auto) 1.4 % 06/06/21 04:47 Baso % (Auto) 0.4 % 06/06/21 04:47 Neut # (Auto) 4.58 10^3/uL (1.8-7.7) 06/06/21 04:47 Lymph # (Auto) 1.9 10^3/uL (0.8-4.8) 06/06/21 04:47 Carbon # (Auto) 0.6 10^3/uL (0.2-0.9) 06/06/21 04:47 Eos # (Auto) 0.1 10^3/uL (0.0-0.8) 06/06/21 04:47 Baso # (Auto) 0.0 10^3/uL (0.0-0.1) 06/06/21 04:47 Nucleated RBC % (auto) 0 % 06/06/21 04:47 Nucleated RBCs # 0.0 /100WBC 06/06/21 04:47 PT 13.00 SECONDS (12.1-14.9) 06/06/21 04:47 INR 0.95 (0.8-1.2) 06/06/21 04:47 Sodium 138 mmol/L (136-145) 06/06/21 04:47 Potassium 3.8 mmol/L (3.5-5.1) 06/06/21 04:47 Chloride 104 mmol/L (98-107) 06/06/21 04:47 Carbon Dioxide 23 mmol/L (22-29) 06/06/21 04:47 Anion Gap 14.8 (5-19) 06/06/21 04:47 BUN 9 mg/dL (8-23) 06/06/21 04:47 Creatinine 0.8 mg/dL (0.7-1.2) 06/06/21 04:47 GFR Calculation 95.6 mL/min (90-130) 06/06/21 04:47 Glucose 109 mg/dL (65-115) 06/06/21 04:47 Estimat Average Glucose 111 06/06/21 04:47 Hemoglobin A1c 5.5 % (4.0-6.0) 06/06/21 04:47 Calculated Osmolality 285 mOsm/kg (285-295) 06/06/21 04:47 Lactic Acid 1.7 mmol/L (0.5-2.2) 06/06/21 04:47 Calcium 9.5 mg/dL (8.5-10.5) 02/13/22 04:47 Phosphorus 2.4 mg/dL (2.5-4.5) L 06/06/21 04:47 Magnesium 2.2 mg/dL (1.7-2.3) 06/06/21 04:47 Total Bilirubin 0.5 mg/dL (0.15-1.2) 06/06/21 04:47 AST 16 U/L (0-40) 06/06/21 04:47 ALT 29 U/L (0-41) 06/06/21 04:47 Alkaline Phosphatase 79 IU/L (40-130) 06/06/21 04:47 Troponin T Baseline 8 ng/L (0-15) 06/05/21 14:33 Troponin T 120 Minute 9.05 ng/L (0-15) 06/05/21 16:33 Delta Troponin T 1.05 ABS# (0-10) 06/05/21 16:33 Troponin T Hi Sens 6Hr 9.35 ng/L (0-15) 06/05/21 20:11 Troponin T Hi Sens 6Hr Delta 1.35 ng/L (0-12) 06/05/21 20:11 NT-Pro-B Natriuret Pep 272 pg/mL (0-125) H 06/06/21 04:47 Total Protein 7.2 g/dL (6.6-8.7) 06/06/21 04:47 Albumin 4.1 g/dL (3.5-5.2) 06/06/21 04:47 Globulin 3.1 g/dL (1.3-4.6) 06/06/21 04:47 Triglycerides 171 mg/dL (0-150) H 06/06/21 04:47 Cholesterol 154 mg/dL (0-200) 06/06/21 04:47 LDL Cholesterol, Calc 72 mg/dL (50-129) 06/06/21 04:47 HDL Cholesterol 48 mg/dL (60-100) L 06/06/21 04:47 LDL/HDL Ratio 1.50 RATIO (0.00-3.22) 06/06/21 04:47 Cholesterol/HDL Ratio 3.21 mg/dL (1.0-5.00) 06/06/21 04:47 Lipase 17 U/L (13-60) 06/05/21 14:33 Procalcitonin 0.05 ng/mL (0-0.5) 06/06/21 04:47 TSH 1.85 uIU/mL (0.27-4.20) 06/06/21 04:47 Urine Color Yellow (Yellow) 06/05/21 15:46 Urine Appearance Clear (CLEAR) 06/05/21 15:46 Urine pH 6 (5-7) 06/05/21 15:46 Ur Specific Gibson 1.005 (1.005-1.030) 06/05/21 15:46 Urine Protein Neg (Negative) 06/05/21 15:46 Urine Glucose (UA) Norm (Normal) 06/05/21 15:46 Urine Ketones Negative (Negative) 06/05/21 15:46 Urine Blood Neg (Negative) 06/05/21 15:46 Urine Nitrate Negative (Negative) 06/05/21 15:46 Urine Bilirubin Neg (Negative) 06/05/21 15:46 Urine Urobilinogen Norm mg/dL (Negative) 06/05/21 15:46 Ur Leukocyte Esterase Negative (Negative) 06/05/21 15:46 Coronavirus 229E (PCR) Not detected (NOT DETECT) 06/05/21 16:36 SARS-CoV-2 (PCR) Not detected (NOT DETECT) 06/05/21 16:36 Vitals Last Vital Signs Temp 98.5 F 06/05/21 14:04 Pulse 71 06/06/21 09:41 Resp 21 H 06/06/21 08:27 BP 165/94 06/06/21 09:41 Pulse Ox 97 06/06/21 08:27 Discharge Plan Discharge Patient Disposition: Home Condition: Stable Prescriptions: New atorvastatin 40 mg tablet 40 mg PO QPM Qty: 90 0RF Continued tamsulosin 0.4 mg capsule 0.4 mg PO BEDTIME 0RF pantoprazole 40 mg tablet,delayed release (DR/EC) 40 mg PO BID 0RF losartan-hydrochlorothiazide 50-12.5 mg tablet 1 tab PO DAILY 0RF aspirin 81 mg Capsule 81 mg PO DAILY 0RF Discontinued metoprolol tartrate 25 mg tablet 25 mg PO BID 0RF Discharge Orders: Discharge Order (Routine); Ordered 06/06/21 Ordered By: Alejo Lake Other Ambulatory Orders: MCT/Event Monitor 21 Days (Routine) Timeframe: 1 Day Facility: [facility] - Location: Radiology Ordered By: Alejo Lake Referrals: Bentley Harvey MD [Referring] - 4-7 days (pre-syncope, bradycardia, bereavement) Discharge Diet: Cardiac Discharge Activity: Increase activity as tolerated Patient Instructions: Atorvastatin (By mouth), Kidney Stones (GEN), Syncope (GEN), Grief and Loss (GEN), Carotid Artery Disease (GEN), Chronic Hypertension (GEN), Bradycardia (GEN), Mediterranean Diet (GEN), Opioid Safety Activity Restrictions/Additional Instructions: Due to slow heartbeat noted during the night as well as initially reported 1 second pauses, please stop metoprolol at this time. Please follow-up to be set up with cardiac catheterization technician. Follow-up with your primary doctor regarding results, and discuss a follow-up as needed with cardiology. In the hospital when the studies performed was carotid Doppler which also showed atherosclerotic plaque in the left carotid artery showing moderate, 50-69% stenosis, unrelated to your presentation, but important to be aware of. Please resume taking cholesterol medication (atorvastatin), dose of which is increased to 40 mg daily. Continue to work with your primary doctor to optimize risk factors of cardiovascular disease. Monitor your blood pressures closely at least 3 times a day. Write down values to bring to your appointment. Incidentally on CT abdomen pelvis you are seen to have a nonobstructing 8 mm left kidney stone. Discussed with your primary doctor. Maintain low-sodium diet. Discharge Attestations Time Spent in Discharge Care*: greater than 30 min Quality Metrics Clinical Quality Measures [ No reported AMI, CVA or VTE this stay] Coding Level of Care Code Acute Chg [facility] note Diagnoses Near syncope R55 Hypertension I10 Sinus bradycardia R00.1 Sinus pause I45.5 Light headedness R42
--- NOTE | 2021-06-06 21:18 | USCV_ITS ---
Danilo Thornton Age: 71 Gender: M : 1950 Exam Date: 06/06/2021 08:35 Ordering Phys: Roderick Streeter MD Technologist: Michelle Patrick [place] [facility] [place]: SINUS ÁNGELA BP: / HR: 59 Rhythm: Sinus Technical Quality: Adequate MEASUREMENTS (Male / Female) Normal Values 2D ECHO LV Diastolic Diameter PLAX 5.1 cm 4.2 - 5.9 / 3.9 - 5.3 cm LV Systolic Diameter PLAX 2.8 cm LV Chamber Size 3.9 cm IVS Diastolic Thickness 1.4 cm 0.6 - 1.0 / 0.6 - 0.9 cm IVS Systolic Thickness 1.9 cm LVPW Diastolic Thickness 1.3 cm 0.6 - 1.0 / 0.6 - 0.9 cm LVPW Systolic Thickness 1.8 cm RV Chamber Size 3.0 cm LVOT Diameter 2.0 cm LV Ejection Fraction 2D Teich 76.9 % LV Ejection Fraction MOD 2C 46.7 % LV Ejection Fraction 2C AL 47.2 % LA Diameter 3.0 cm LA Width 4.0 cm LA Height 3.7 cm RA Width 3.5 cm RA Height 4.2 cm Aorta at Sinotubular Diameter 4.2 cm M-MODE Aortic Annulus Diameter 5.3 cm LA Ao Ratio MM 0.6 MV E Point Septal Separation 1.2 cm DOPPLER AV Peak Velocity 105.0 cm/s LVOT Peak Velocity 91.0 cm/s AV Area Cont Eq vti 3.0 cm squared AV Area Cont Eq pk 2.8 cm squared MV Area PHT 2.5 cm squared Mitral E to A Ratio 0.7 MV E' Velocity 33.5 cm/s Mitral E to MV E' Ratio 7.3 Mitral E to LV E' Lateral Ratio 6.0 Mitral E to LV E' Septal Ratio 9.4 TR Peak Velocity 113.9 cm/s TR Peak Gradient 5.2 mmHg TR Mean Velocity 80.6 cm/s TR Mean Gradient 2.9 mmHg TR Velocity Time Integral 25.9 cm TV Peak E Velocity 63.0 cm/s Right Atrial Pressure 3.0 mmHg Pulmonary Artery Systolic Pressu 8.2 mmHg PV Peak Velocity 64.0 cm/s RV Acceleration Time 0.1 s RV Ejection Time 0.3 s RV AcT/ET 0.4 FINDINGS Left Ventricle Normal left ventricular size. LV systolic function is grossly normal. Regional wall motion abnormalities cannot be assessed because of poor quality images. Grade 1 diastolic dysfunction. Right Ventricle The right ventricle is normal in size and function. Right Atrium The right atrium is normal in size. Left Atrium The left atrium is normal in size. Mitral Valve Structurally normal mitral valve without significant stenosis or prolapse. There is no mitral regurgitation. Aortic Valve Structurally normal aortic valve without significant sclerosis or stenosis. There is mild aortic regurgitation. Tricuspid Valve Structurally normal tricuspid valve without significant stenosis or regurgitation. Insufficient TR jet to calculate RVSP Pulmonic Valve Structurally normal pulmonic valve without significant stenosis. There is no pulmonic regurgitation. Pericardium Normal pericardium without effusion. Aorta Ascending aorta is dilated CONCLUSIONS Technically limited quality echocardiogram because of poor ultrasonic windows. Grossly LV systolic function is normal. Regional wall motion abnormalities cannot be assessed because of poor quality images. Recommend limited echo with contrast to properly assess LVEF and regional wall motion. Grade 1 diastolic dysfunction. Mild aortic regurgitation. Ascending aorta is dilated. No comparison studies are available Jonathan Powell MD (Electronically Signed) Final Date: 06 June 2021 21:50 S
--- NOTE | 2021-06-06 21:18 | USR_ITS ---
PROCEDURE INFORMATION: Exam: US Duplex Bilateral Extracranial Arteries, Carotid Arteries Exam date and time: 06/06/2021 9:18 PM Age: 71 years old Clinical indication: Altered mental status/memory loss; Confusion or disorientation; Patient HX: PT complaint is cardiac; Additional info: AMS TECHNIQUE: Imaging protocol: Real-time Duplex ultrasound scan of the bilateral carotid and vertebral arteries combining apodaca scale, color Doppler and spectral waveform analysis. Bilateral exam. Exam focused on the carotid arteries. COMPARISON: CT head wo con* [id number] 06/05/2021 5:05 PM FINDINGS: Right common carotid artery: Unremarkable. No occlusion or stenosis. Waveforms are normal. Right internal carotid artery: There is mild atherosclerotic plaque in the proximal right internal carotid artery. There is mild stenosis. Waveforms and velocities are normal. Right ICA/CCA ratio: Within normal limits. Right external carotid artery: No stenosis in the origin. Right vertebral artery: Unremarkable. Antegrade flow. Left common carotid artery: Unremarkable. No occlusion or stenosis. Waveforms are normal. Left internal carotid artery: There is soft atherosclerotic plaque in the left carotid bulb and proximal internal carotid artery. There is mild spectral broadening. Peak systolic velocity in the left internal carotid artery is elevated at 137 cm/s. The findings are consistent with moderate 50-69% stenosis. Left ICA/CCA ratio: Increased at 2.64.. Left external carotid artery: No stenosis in the origin. Left vertebral artery: Unremarkable. Antegrade flow. US/CV carotid duplex BI* [id number] IMPRESSION: 1. There is soft atherosclerotic plaque in the left carotid bulb and proximal internal carotid artery with mildly elevated velocities consistent with moderate 50-69% stenosis. 2. Mild plaque in the proximal right internal carotid artery with mild stenosis. REFERENCES: SRU CRITERIA. The degree of internal carotid artery stenosis is based on criteria defined by the Society of Radiologists in Ultrasound (SRU). Normal is no stenosis. Mild is less than 50% stenosis. Moderate is 50-69% stenosis. Severe is greater than 69% stenosis to near occlusion. Near occlusion is a markedly narrowed lumen. Total occlusion is no detectable patent lumen.
--- NOTE | 2021-06-07 07:28 | PC.OT ---
OT EVALUATION ORDERS RECEIVED. PATIENT DISCHARGED BEFORE EVALUATION COULD BE COMPLETED.
== END 2021-06-06 11:55 | disposition home or self-care (01) ==
LOC: ER 17:09 → ER IP 17:16
PROVIDERS: Emergency Medicine; Admitting Provider Student in an Organized Health Care Education/Training Program; Emergency Provider Family Medicine; Visit Provider Internal Medicine
DX: R55 Syncope and collapse (principal); I10 Essential (primary) hypertension; R00.1 Bradycardia, unspecified; I45.5 Other specified heart block; R42 Dizziness and giddiness; I25.10 Atherosclerotic heart disease of native coronary artery without angina pectoris; E78.5 Hyperlipidemia, unspecified; K21.9 Gastro-esophageal reflux disease without esophagitis; Z82.49 Family history of ischemic heart disease and other diseases of the circulatory system
CPT/HCPCS: 70450; 71045; 74177; 80053; 80061; 81003; 83036; 83605; 83690; 83735; 83880; 84100; 84145; 84443; 84484; 85025; 85610; 87635; 93005; 93306; 93880; 96372; 99285; G0378; J0360; J1650; J7030; J7799; Q9967

== ENCOUNTER 2021-07-05 18:05 | Emergency (ER) | payer MEDICARE, SELFPAY ==
--- NOTE | 2021-07-05 18:12 | XRR_ITS ---
PROCEDURE INFORMATION: Exam: XR Chest Exam date and time: 07/05/2021 6:12 PM Age: 71 years old Clinical indication: Pain; Angina pectoris; Additional info: Chest pain started this morning TECHNIQUE: Imaging protocol: XR of the chest. Views: 1 view. COMPARISON: CR (CHEST, ) 06/05/2021 5:00 PM FINDINGS: Lungs: Unremarkable. No consolidation. Pleural spaces: Unremarkable. No pleural effusion. No pneumothorax. Heart/Mediastinum: Unremarkable. No cardiomegaly. Bones/joints: Unremarkable. XR/XR chest 1V portable [id number] IMPRESSION: No acute findings.
--- NOTE | 2021-07-05 18:12 | ECG_ITS ---
[facility] Test Date: 2021-07-05 Pat Name: Danilo Thornton Department: Room: Gender: Male Echocardiograph Technician: : 1950 Requested By: Annette Slaughter Order Number: [id number] Srinivas MD: Jonathan Powell M.D. Measurements Intervals [place] Rate: 63 P: 32 MN: 169 QRS: 11 QRSD: 112 T: 66 QT: 393 QTc: 402 Interpretive Statements SINUS RHYTHM MODERATE INTRAVENTRICULAR CONDUCTION DELAY [110+ ms QRS DURATION] Compared to ECG 06/05/2021 16:28:16 Sinus bradycardia no longer present Electronically Signed On 07-05-2021 20:59:11 CDT by Jonathan Powell M.D. [email or web address]
--- NOTE | 2021-07-05 18:18 | W.ED.CHESTPA ---
HPI - Chest Pain General: Chief Complaint: Chest Pain Stated Complaint: CHEST PAIN Time Seen by Provider: 07/05/21 18:17 History of Present Illness: Mr. Thornton is a 71-year-old gentleman with significant past medical history of hypertension who presents to the emergency department due to chest discomfort. Symptoms initially began approximately 1 month ago when he was admitted for lightheadedness and syncope associated with bradycardia. He had hospitalization and medication adjustment at that time and was discharged. 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 He returns to the emergency department today secondary to chest discomfort. Unfortunately he has had significant life stressors recently including the of his . His daughter called him earlier today and she was distressed and subsequently required treatment in the emergency department and NPU. He describes discomfort in his chest which is pressure associated with nausea. He has had poor p.o. intake. Denies other typical cardiac features or infectious symptoms. Symptoms have resolved and currently he is discomfort free. Additionally he has noticed variability in his blood pressure including pressures as high as 180s systolic. No other specific changes in health, exacerbating, or relieving factors identified. Onset (ago): hour(s) Prior episodes: Yes Onset: during rest Pain location: substernal Severity: moderate Context: other Review of Systems General: Reports: 10 or more systems reviewed and unremarkable except in HPI and below PFSH ED PFSH: Medical History Hypertension Surgical History History of vasectomy Family History Mother CAD (coronary artery disease) Social History Smoking and tobacco status: never smoked Alcohol intake: never Physical Exam Const: COMMON NORMALS: alert GENERAL APPEARANCE: cooperative and well developed HENMT: COMMON NORMALS: normocephalic and atraumatic HEAD & SCALP: normocephalic and atraumatic Eye: COMMON NORMALS: conjunctivae normal CONJUNCTIVA: Yes conjunctivae normal SCLERA: sclerae normal Neck/C-Spine: COMMON NORMALS: supple GENERAL: Yes trachea midline Resp: COMMON NORMALS: normal respiratory effort and clear to auscultation bilaterally EFFORT & INSPECTION: Yes able to speak in complete sentences AUSCULTATION: clear to auscultation bilaterally Cardio: COMMON NORMALS: regular rate and regular rhythm RATE: regular rate RHYTHM: regular rhythm GI: COMMON NORMALS: Soft to palpation PALPATION: Yes Soft to palpation and No Tenderness to palpation present (GI) PERCUSSION: normal to percussion Extremity: GENERAL: Yes normal exam except as noted and No edema Neuro: COMMON NORMALS: moves all extremities SENSORIUM/ORIENTATION: Yes alert and No Orientation impaired Psych: COMMON NORMALS: mental status grossly normal and Normal thought process present THOUGHT PROCESS: Normal thought process present OTHER: Tearful, depressed Course ED course: - Patient was seen and evaluated by me at bedside - Patient placed on cardiac monitors, IV access obtained - Initial evaluation notable for exam as above - Labs notable for no leukocytosis, normal hemoglobin. No acute electrolyte derangement to explain patient's symptoms. - Imaging notable for negative chest x-ray - Upon serial reexamination after treatment the patient was improved - Based on patient history, evaluation, labs, and imaging as interpreted the most likely cause of the patient's condition is chest pain of uncertain etiology - The results of ED evaluation were discussed with the patient including possible disposition options. I discussed heart score risk ratification with the patient and that he is moderate risk. I offered admission which the patient declined in preference of outpatient stress test. I discussed prescriptions and/or symptomatic cares (if applicable) including appropriate and responsible use, followup plan, and return precautions. The patient verbalized understanding and felt safe for discharge. - Patient discharged in satisfactory condition. Note: Click bubbles or prepopulated ulgo in note writing are used for assistance with data collection and billing and are inherently more limited than narrative and other text portions of this note. Please use narrative for additional clinical history and defer to narrative/free test for any case of contradictory information. If information appears in only free text or click bubble it should be considered present or absent as reported. Please contact note documentation writer for clarifications of clinical information or contradictory information. MDM is a brief summary, contradictory or erroneous seeming information should be clarified and full note should be reviewed. Vital Signs: Vital signs: Vital Signs Temperature 97.4 F L 07/05/21 18:19 Pulse Rate 59 L 07/05/21 22:11 Respiratory Rate 19 H 07/05/21 22:11 Blood Pressure 147/96 07/05/21 22:11 Pulse Oximetry 96 07/05/21 22:11 MDM - Chest Pain Medical Decision Making 71-year-old gentleman presenting with chest pain and hypertension. ED evaluation negative for evidence of endorgan dysfunction or ACS. Offered admission based on heart score which the patient declined in favor of outpatient management. Satisfactory for discharge. Medical Records I reviewed the patient's medical records. Lab Data I reviewed the patient's lab results. : 07/05/21 18:35 07/05/21 18:35 Radiology Impressions Chest X-Ray 07/05/21 18:12 IMPRESSION: No acute findings. Laboratory Results WBC 6.1 10^3/uL (4.0-10.0) 07/05/21 18:35 RBC 5.12 10^6/uL (4.1-5.3) 07/05/21 18:35 Hgb 16.5 g/dL (11.7-16.6) 07/05/21 18:35 Hct 47.2 % (42.0-52.0) 07/05/21 18:35 MCV 92.2 fl (80-94) 07/05/21 18:35 MCH 32.2 pg (28.0-34.0) 07/05/21 18:35 MCHC 35.0 g/dL (30.0-36.0) 07/05/21 18:35 RDW 11.9 % (12.1-15.1) L 07/05/21 18:35 Plt Count 272 10^3/cmm (130-400) 07/05/21 18:35 MPV 9.9 fL (7.4-10.4) 07/05/21 18:35 Neut % (Auto) 67.0 % 07/05/21 18:35 Lymph % (Auto) 21.4 % 07/05/21 18:35 [place] % (Auto) 9.5 % 07/05/21 18:35 Eos % (Auto) 1.3 % 07/05/21 18:35 Baso % (Auto) 0.5 % 07/05/21 18:35 Neut # (Auto) 4.09 10^3/uL (1.8-7.7) 07/05/21 18:35 Lymph # (Auto) 1.3 10^3/uL (0.8-4.8) 07/05/21 18:35 [place] # (Auto) 0.6 10^3/uL (0.2-0.9) 07/05/21 18:35 Eos # (Auto) 0.1 10^3/uL (0.0-0.8) 07/05/21 18:35 Baso # (Auto) 0.0 10^3/uL (0.0-0.1) 07/05/21 18:35 Nucleated RBC % (auto) 0 % 07/05/21 18:35 Nucleated RBCs # 0.0 /100WBC 07/05/21 18:35 Sodium 138 mmol/L (136-145) 07/05/21 18:35 Potassium 3.8 mmol/L (3.5-5.1) 07/05/21 18:35 Chloride 101 mmol/L (98-107) 07/05/21 18:35 Carbon Dioxide 24 mmol/L (22-29) 07/05/21 18:35 Anion Gap 16.8 (5-19) 07/05/21 18:35 BUN 12 mg/dL (8-23) 07/05/21 18:35 Creatinine 0.7 mg/dL (0.7-1.2) 07/05/21 18:35 GFR Calculation 111.5 mL/min (90-130) 07/05/21 18:35 Glucose 110 mg/dL (65-115) 07/05/21 18:35 Calculated Osmolality 286 mOsm/kg (285-295) 07/05/21 18:35 Calcium 10.0 mg/dL (8.5-10.5) 07/05/21 18:35 Total Bilirubin 0.6 mg/dL (0.15-1.2) 07/05/21 18:35 Direct Bilirubin 0.20 mg/dL (0.00-0.30) 07/05/21 18:35 AST 23 U/L (0-40) 07/05/21 18:35 ALT 33 U/L (0-41) 07/05/21 18:35 Alkaline Phosphatase 84 IU/L (40-130) 07/05/21 18:35 Troponin T Baseline 14 ng/L (0-15) 07/05/21 18:35 Troponin T 120 Minute 14.39 ng/L (0-15) 07/05/21 20:43 Delta Troponin T 0.39 ABS# (0-10) 07/05/21 20:43 NT-Pro-B Natriuret Pep 190 pg/mL (0-125) H 07/05/21 18:35 Total Protein 7.8 g/dL (6.6-8.7) 07/05/21 18:35 Albumin 4.6 g/dL (3.5-5.2) 07/05/21 18:35 Globulin 3.2 g/dL (1.3-4.6) 07/05/21 18:35 Lipase 19 U/L (13-60) 07/05/21 18:35 TSH 1.19 uIU/mL (0.27-4.20) 07/05/21 18:35 EKG Data EKG 1: I personally reviewed and interpreted this EKG as follows: EKG interpretation date: 07/05/21 EKG interpretation time: 18:33 Interpretation: Twelve-lead EKG shows a regular rhythm at a rate of 63. DE interval 169, QRS duration 111, QTc 400. Normal axis. Interpretation: Sinus rhythm. EKG 2: I personally reviewed and interpreted this EKG as follows: EKG interpretation date: 07/05/21 EKG interpretation time: 20:07 Interpretation: Twelve-lead EKG shows an irregular rhythm at a rate of 66. Clinical 174, QRS duration 116, QTc 415. Normal axis. Interpretation: Sinus rhythm with frequent PVCs resolved in bigeminy Discharge Plan Discharge Patient Disposition: Home Clinical Impression: Chest pain, Hypertension Condition: Stable Prescriptions: New Norvasc 5 mg tablet 5 mg PO DAILY Qty: 30 0RF No Action tamsulosin 0.4 mg capsule 0.4 mg PO BEDTIME 0RF losartan-hydrochlorothiazide 50-12.5 mg tablet 1 tab PO DAILY 0RF aspirin 81 mg Capsule 81 mg PO DAILY 0RF atorvastatin 40 mg tablet 40 mg PO BEDTIME 0RF Discharge Orders: Discharge ED (Routine); Ordered 07/05/21 Ordered By: Norberto Eldridge Referrals: Bentley Harvey MD [Primary Care Provider] - Discharge Diet: Usual diet Discharge Activity: Resume usual activity Patient Instructions: Chest Pain (ED) Activity Restrictions/Additional Instructions: Thank you for visiting the emergency department. You were seen and evaluated for chest pain. The exact cause of your symptoms is unclear. As discussed you need to require further evaluation of your heart which you are choosing to do in the outpatient setting. Please follow-up with your primary care provider. Please return to the emergency department for worsening symptoms or anything else that you are concerned about and feel needs emergency department evaluation. Coding Level of Care Code ED Upholstery Restorer for Kayleigh Fwrafael Exam Comprehensive
[2021-07-05 18:19] VITALS: BP 143/84; PULSE 65; RESP 18; TEMP 36.3; O2SAT 97; BMI 33.0
[2021-07-05 18:40] LABS: Basophils % 0.5 %; Eosinophils # 0.1 10^3/uL (0.0-0.8); Eosinophils % 1.3 %; Hematocrit 47.2 % (42.0-52.0); Hemoglobin 16.5 g/dL (11.7-16.6); Lymphocytes # 1.3 10^3/uL (0.8-4.8); Lymphocytes % 21.4 %; Mean Corpuscular Hemoglobin 32.2 pg (28.0-34.0); Mean Corpuscular Volume 92.2 fl (80-94); Mean Platelet Volume 9.9 fL (7.4-10.4); Monocytes # 0.6 10^3/uL (0.2-0.9); Monocytes % 9.5 %; Neutrophils # 4.09 10^3/uL (1.8-7.7); Nucleated Red Blood Cells % 0 %; Platelet Count 272 10^3/cmm (130-400); Red Blood Count 5.12 10^6/uL (4.1-5.3); Red Cell Distribution Width 11.9 % (12.1-15.1); White Blood Count 6.1 10^3/uL (4.0-10.0)
[2021-07-05 19:10] LABS: Anion Gap 16.8 (5-19); Blood Urea Nitrogen 12 mg/dL (8-23); Carbon Dioxide 24 mmol/L (22-29); Chloride 101 mmol/L (98-107); Glomerular Filtration Rate 111.5 mL/min (90-130); Glucose 110 mg/dL (65-115); Osmolality Calculated 286 mOsm/kg (285-295); Potassium 3.8 mmol/L (3.5-5.1); Sodium 138 mmol/L (136-145)
[2021-07-05 19:13] LABS: Troponin(5th) Baseline 14 ng/L (0-15)
[2021-07-05 20:06] LABS: Alanine Aminotransferase 33 U/L (0-41); Albumin Level 4.6 g/dL (3.5-5.2); Alkaline Phosphatase 84 IU/L (40-130); Aspartate Amino Transferase 23 U/L (0-40); Globulin 3.2 g/dL (1.3-4.6); Lipase 19 U/L (13-60); NT Pro B Type Natriuretic Pept 190 pg/mL (0-125); Total Bilirubin 0.6 mg/dL (0.15-1.2); Total Protein 7.8 g/dL (6.6-8.7)
--- NOTE | 2021-07-05 20:12 | ECG_ITS ---
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 Measurements Intervals [place] Rate: 66 P: 26 [place]: 174 QRS: 10 QRSD: 116 T: 81 QT: 402 QTc: 422 Interpretive Statements SINUS RHYTHM WITH FREQUENT VENTRICULAR PREMATURE COMPLEXES MODERATE INTRAVENTRICULAR CONDUCTION DELAY [110+ ms QRS DURATION] NONSPECIFIC ST & T-WAVE ABNORMALITY Compared to ECG 07/05/2021 18:27:09 Ventricular premature complex(es) now present T-wave abnormality now present Electronically Signed On 07-05-2021 21:10:33 CDT by Jonathan Powell M.D. [id number]
[2021-07-05 21:11] LABS: Thyroid Stimulating Hormone 1.19 uIU/mL (0.27-4.20)
[2021-07-05 21:15] LABS: Troponin 5 2HR 14.39 ng/L (0-15)
[2021-07-05 21:24] LABS: Troponin 5 2HR Delta 0.39 ABS# (0-10)
[2021-07-05 21:25] VITALS: BP 143/95; PULSE 70; RESP 19; O2SAT 96
[2021-07-05 22:11] VITALS: BP 147/96; PULSE 59; RESP 19; O2SAT 96
--- NOTE | 2021-07-08 06:53 | DCPLANNER ---
Addendum entered by Nickie Hernandez 04/28/22 13:06: plant quality manager received notification that patient did not want the test scheduled Original Note: plant quality manager had message to schedule an outpatient stress test for patient. plant quality manager faxed signed order to centralized scheduling, who will call patient with appointment information.
== END 2021-07-05 22:12 | disposition home or self-care (01) ==
PROVIDERS: Emergency Medicine; Emergency Provider Emergency Medicine; PCP Family Medicine
DX: R07.9 Chest pain, unspecified (principal); I10 Essential (primary) hypertension; Z79.82 Long term (current) use of aspirin
CPT/HCPCS: 71045; 80048; 80076; 83690; 83880; 84443; 84484; 85025; 93005; 99284

== ENCOUNTER 2021-07-14 02:47 | Emergency (ER) | payer MEDICARE, SELFPAY ==
[2021-07-14 02:52] VITALS: BP 187/93; PULSE 66; RESP 26; TEMP 36.6; O2SAT 99; BMI 33.0
--- NOTE | 2021-07-14 02:55 | XRR_ITS ---
PROCEDURE INFORMATION: Exam: XR Chest Exam date and time: 07/14/2021 2:18 AM Age: 71 years old Clinical indication: Shortness of breath; Patient HX: C/O SOB with hypertension. ; Additional info: Abd pain TECHNIQUE: Imaging protocol: XR of the chest. Views: 1 view. COMPARISON: CR (CHEST, ) 07/05/2021 5:34 PM FINDINGS: Lungs: No focal airspace disease. Pleural spaces: Unremarkable. No pleural effusion. No pneumothorax. Heart/Mediastinum: Cardiomediastinal silhouette is within normal limits. Bones/joints: Unremarkable. XR/XR chest 1V portable [id number] IMPRESSION: No acute cardiopulmonary abnormality.
[2021-07-14 02:56] VITALS: BP 187/93; PULSE 57; RESP 16; O2SAT 99
--- NOTE | 2021-07-14 02:56 | ECG_ITS ---
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 Measurements Intervals [place] Rate: 58 P: 30 MD: 157 QRS: 13 QRSD: 127 T: 69 QT: 441 QTc: 434 Interpretive Statements SINUS BRADYCARDIA MODERATE INTRAVENTRICULAR CONDUCTION DELAY [110+ ms QRS DURATION] MINIMAL ST DEPRESSION [0.025+ mV ST DEPRESSION] Compared to ECG 07/05/2021 20:01:01 ST (T wave) deviation now present Sinus rhythm no longer present Ventricular premature complex(es) no longer present T-wave abnormality no longer present Electronically Signed On 07-14-2021 19:17:36 CDT by Arianne De Jesus M.D. [id number]
--- NOTE | 2021-07-14 02:58 | ED_ITS ---
HPI - General Adult General: Chief complaint: General Medical Stated complaint: bp check Time Seen by Provider: 07/14/21 02:48 Source: patient Mode of arrival: ambulatory Limitations: no limitations History of Present Illness: 71-year-old male states that he has been having extreme anxiety over the last few weeks one of his daughters had attempted suicide notes causing severe anxiety. He states that he has been having elevated blood pressures along with nausea and just not feeling right. He was seen here 4 days ago prescribed Norvasc but he states he has not been taking it. States that tonight he woke up with a sick feeling in his stomach and high blood pressure. No vomiting no diarrhea Associated symptoms: Reports nausea; Deny chest pain, dyspnea, headache(s), rash or vomiting Review of Systems Const: Denies: fever(s), chills, body aches or change in appetite Eyes: Denies: blurry vision or eye discomfort ENMT: Denies: throat pain or dental pain Card: Denies: chest pain Resp: Denies: dyspnea GI: Reports: nausea; Denies: abdominal pain, vomiting or diarrhea : Denies: dysuria Musc: Denies: neck pain or back pain Skin/Breast: Denies: rash Neuro: Denies: headache(s) Psych: Reports: anxiety; Denies: depression Angel/Lymph: Denies: easy bruising All/Imm: Denies: urticaria PFSH ED PFSH: Medical History Hypertension Surgical History History of vasectomy Family History Mother CAD (coronary artery disease) Social History Smoking and tobacco status: never smoked Alcohol intake: never Physical Exam Const: COMMON NORMALS: no acute distress, patient oriented x3 and healthy appearing GENERAL APPEARANCE: anxious HENMT: COMMON NORMALS: normocephalic and atraumatic HEAD & SCALP: normocephalic and atraumatic Eye: COMMON NORMALS: Equal, round and reactive pupils present and EOMs intact bilaterally PUPIL: Yes Equal, round and reactive pupils present Neck/C-Spine: COMMON NORMALS: full ROM and supple Chest: COMMONS NORMALS: normal inspection of the chest and normal palpation of entire chest wall Resp: COMMON NORMALS: normal respiratory effort, No retractions, No use of accessory muscles and clear to auscultation bilaterally AUSCULTATION: clear to auscultation bilaterally Cardio: COMMON NORMALS: regular rate, regular rhythm and No murmurs present (Cardio) RATE: regular rate RHYTHM: regular rhythm GI: COMMON NORMALS: Normal to inspection, nondistended, normoactive bowel sounds present, Soft to palpation, non-tender and no masses PALPATION: Yes Soft to palpation Extremity: COMMON NORMALS: normal to inspection and full ROM Neuro: COMMON NORMALS: patient oriented x3, moves all extremities and no focal motor deficits Psych: COMMON NORMALS: mental status grossly normal, Normal thought process present and cooperative THOUGHT PROCESS: Normal thought process present Skin: COMMON NORMALS: no rashes or lesions noted and no wounds GENERAL SKIN EXAM: no rashes or lesions noted Course Vital Signs: Vital signs: Vital Signs Temperature 97.8 F 07/14/21 02:52 Pulse Rate 57 L 07/14/21 02:56 Respiratory Rate 16 07/14/21 02:56 Blood Pressure 187/93 07/14/21 02:56 Pulse Oximetry 99 07/14/21 02:[address] [facility] - General Adult Medical Decision Making Patient presents with hypertension along with anxiety and under a lot of stress. He is well-appearing here EKG and blood work here is normal his blood pressure is much improved informed him he needs to take that Norvasc daily as prescribed he is to follow-up his PCP and return if worsening. Lab Data : 07/14/21 02:56 07/14/21 02:56 Laboratory Results WBC 7.5 10^3/uL (4.0-10.0) 07/14/21 02:56 RBC 5.13 10^6/uL (4.1-5.3) 07/14/21 02:56 Hgb 16.6 g/dL (11.7-16.6) 07/14/21 02:56 Hct 46.8 % (42.0-52.0) 07/14/21 02:56 MCV 91.2 fl (80-94) 07/14/21 02:56 MCH 32.4 pg (28.0-34.0) 07/14/21 02:56 MCHC 35.5 g/dL (30.0-36.0) 07/14/21 02:56 RDW 12.0 % (12.1-15.1) L 07/14/21 02:56 Plt Count 279 10^3/cmm (130-400) 07/14/21 02:56 MPV 9.7 fL (7.4-10.4) 07/14/21 02:56 Neut % (Auto) 55.4 % 07/14/21 02:56 Lymph % (Auto) 29.6 % 07/14/21 02:56 [place] % (Auto) 11.8 % 07/14/21 02:56 Eos % (Auto) 2.1 % 07/14/21 02:56 Baso % (Auto) 0.7 % 07/14/21 02:56 Neut # (Auto) 4.18 10^3/uL (1.8-7.7) 07/14/21 02:56 Lymph # (Auto) 2.2 10^3/uL (0.8-4.8) 07/14/21 02:56 [place] # (Auto) 0.9 10^3/uL (0.2-0.9) 07/14/21 02:56 Eos # (Auto) 0.2 10^3/uL (0.0-0.8) 07/14/21 02:56 Baso # (Auto) 0.1 10^3/uL (0.0-0.1) 07/14/21 02:56 Nucleated RBC % (auto) 0 % 07/14/21 02:56 Nucleated RBCs # 0.0 /100WBC 07/14/21 02:56 Sodium 136 mmol/L (136-145) 07/14/21 02:56 Potassium 3.3 mmol/L (3.5-5.1) L 07/14/21 02:56 Chloride 100 mmol/L (98-107) 07/14/21 02:56 Carbon Dioxide 23 mmol/L (22-29) 07/14/21 02:56 Anion Gap 16.3 (5-19) 07/14/21 02:56 BUN 10 mg/dL (8-23) 07/14/21 02:56 Creatinine 1.0 mg/dL (0.7-1.2) 07/14/21 02:56 GFR Calculation 73.9 mL/min (90-130) L 07/14/21 02:56 Glucose 114 mg/dL (65-115) 07/14/21 02:56 Calculated Osmolality 282 mOsm/kg (285-295) L 07/14/21 02:56 Calcium 9.5 mg/dL (8.5-10.5) 07/14/21 02:56 Total Bilirubin 0.8 mg/dL (0.15-1.2) 07/14/21 02:56 AST 19 U/L (0-40) 07/14/21 02:56 ALT 27 U/L (0-41) 07/14/21 02:56 Alkaline Phosphatase 74 IU/L (40-130) 07/14/21 02:56 Troponin T Baseline 11 ng/L (0-15) 07/14/21 02:56 Total Protein 6.8 g/dL (6.6-8.7) 07/14/21 02:56 Albumin 4.6 g/dL (3.5-5.2) 07/14/21 02:56 Globulin 2.2 g/dL (1.3-4.6) 07/14/21 02:56 Lipase 18 U/L (13-60) 07/14/21 02:56 EKG Data EKG 1: I personally reviewed and interpreted this EKG as follows: EKG interpretation date: 07/14/21 EKG interpretation time: 03:01 Interpretation: sinus eliot hr [address] or t wave abnormaliteis qrs 127 qtc 437 Discharge Plan Discharge Patient Disposition: Home Clinical Impression: Hypertension, Anxiety Condition: Stable Prescriptions: No Action tamsulosin 0.4 mg capsule 0.4 mg PO BEDTIME 0RF losartan-hydrochlorothiazide 50-12.5 mg tablet 1 tab PO DAILY 0RF aspirin 81 mg Capsule 81 mg PO DAILY 0RF atorvastatin 40 mg tablet 40 mg PO BEDTIME 0RF Norvasc 5 mg tablet 5 mg PO DAILY Qty: 30 0RF Discharge Orders: Discharge ED (Routine); Ordered 07/14/21 Ordered By: Blake Yung Referrals: Bentley Harvey MD [Primary Care Provider] - Discharge Diet: Advance as tolerated Discharge Activity: Resume usual activity Patient Instructions: Hypertension (ED), Anxiety (ED) Coding Level of Care Code ED Sports Management Professor for Chg Fwd Exam Comprehensive
[2021-07-14] MEDS: LORazepam 2 mg/mL INJ 1 mL 0.5 MG IVP (03:06)
[2021-07-14 03:07] LABS: Basophils # 0.1 10^3/uL (0.0-0.1); Basophils % 0.7 %; Eosinophils # 0.2 10^3/uL (0.0-0.8); Eosinophils % 2.1 %; Hematocrit 46.8 % (42.0-52.0); Hemoglobin 16.6 g/dL (11.7-16.6); Lymphocytes # 2.2 10^3/uL (0.8-4.8); Lymphocytes % 29.6 %; Mean Corpuscular HGB Conc 35.5 g/dL (30.0-36.0); Mean Corpuscular Hemoglobin 32.4 pg (28.0-34.0); Mean Corpuscular Volume 91.2 fl (80-94); Mean Platelet Volume 9.7 fL (7.4-10.4); Monocytes # 0.9 10^3/uL (0.2-0.9); Monocytes % 11.8 %; Neutrophils # 4.18 10^3/uL (1.8-7.7); Neutrophils % 55.4 %; Nucleated Red Blood Cells % 0 %; Platelet Count 279 10^3/cmm (130-400); Red Blood Count 5.13 10^6/uL (4.1-5.3); White Blood Count 7.5 10^3/uL (4.0-10.0)
[2021-07-14] MEDS: hyDRALAzine 20 mg/mL INJ 1 mL 5 MG IVP (03:20)
[2021-07-14 03:30] LABS: Alanine Aminotransferase 27 U/L (0-41); Albumin Level 4.6 g/dL (3.5-5.2); Alkaline Phosphatase 74 IU/L (40-130); Blood Urea Nitrogen 10 mg/dL (8-23); Calcium 9.5 mg/dL (8.5-10.5); Carbon Dioxide 23 mmol/L (22-29); Chloride 100 mmol/L (98-107); Globulin 2.2 g/dL (1.3-4.6); Glomerular Filtration Rate 73.9 mL/min (90-130); Glucose 114 mg/dL (65-115); Lipase 18 U/L (13-60); Osmolality Calculated 282 mOsm/kg (285-295); Sodium 136 mmol/L (136-145); Total Bilirubin 0.8 mg/dL (0.15-1.2); Total Protein 6.8 g/dL (6.6-8.7)
[2021-07-14 03:31] LABS: Anion Gap 16.3 (5-19); Aspartate Amino Transferase 19 U/L (0-40); Potassium 3.3 mmol/L (3.5-5.1)
[2021-07-14 03:33] LABS: Troponin(5th) Baseline 11 ng/L (0-15)
[2021-07-14 04:16] VITALS: BP 113/66; PULSE 63; RESP 17; O2SAT 96
== END 2021-07-14 04:17 | disposition home or self-care (01) ==
PROVIDERS: Emergency Provider Emergency Medicine; PCP Family Medicine
DX: F41.9 Anxiety disorder, unspecified (principal); I10 Essential (primary) hypertension; Z79.82 Long term (current) use of aspirin
CPT/HCPCS: 71045; 80053; 83690; 84484; 85025; 93005; 96374; 96375; 99283; J0360; J2060

== ENCOUNTER → 2021-08-04 11:39 | Outpatient (BNVA) | payer MEDICARE, SELFPAY | PROVIDERS: PCP Family Medicine; Visit Provider Internal Medicine | DX: R55 Syncope and collapse (principal); R00.1 Bradycardia, unspecified; I10 Essential (primary) hypertension; Z79.82 Long term (current) use of aspirin; R06.02 Shortness of breath | CPT/HCPCS: 99204 ==

== ENCOUNTER 2021-10-18 11:37 | Outpatient (CLI) | payer MEDICARE, SELFPAY ==
--- NOTE | 2021-10-18 12:00 | USCV_ITS ---
Danilo Thornton Age: 71 Gender: M : 1950 Exam Date: 10/18/2021 12:21 Ordering Phys: Jonathan Powell M.D ([email or web address]) Technologist: DOMENICA [place] [facility] [place]: SOB, Chest Pain BP: 110 / 78 HR: 58 Rhythm: Sinus Technical Quality: Adequate MEASUREMENTS (Male / Female) Normal Values 2D ECHO LV Diastolic Diameter PLAX 5.6 cm 4.2 - 5.9 / 3.9 - 5.3 cm LV Systolic Diameter PLAX 3.5 cm IVS Diastolic Thickness 1.1 cm 0.6 - 1.0 / 0.6 - 0.9 cm IVS Systolic Thickness 2.0 cm LVPW Diastolic Thickness 1.6 cm 0.6 - 1.0 / 0.6 - 0.9 cm LVPW Systolic Thickness 1.8 cm LVOT Diameter 2.0 cm LV Ejection Fraction 2D Teich 65.7 % LV Ejection Fraction MOD 2C 50.9 % LV Ejection Fraction 2C AL 51.5 % LA Diameter 3.6 cm LA Width 3.3 cm LA Height 4.5 cm RA Width 3.8 cm RA Height 3.7 cm Aorta at Sinotubular Diameter 2.5 cm IVC Diameter 1.6 cm M-MODE Aortic Annulus Diameter 4.2 cm LA Ao Ratio MM 0.9 MV E Point Septal Separation 0.4 cm DOPPLER AV Peak Velocity 112.0 cm/s LVOT Peak Velocity 97.0 cm/s AV Area Cont Eq vti 3.5 cm squared AV Area Cont Eq pk 2.8 cm squared MV Area PHT 3.2 cm squared Mitral E to A Ratio 0.9 MV E' Velocity 36.5 cm/s Mitral E to MV E' Ratio 8.8 Mitral E to LV E' Lateral Ratio 7.1 Mitral E to LV E' Septal Ratio 11.6 TR Peak Velocity 272.0 cm/s TR Peak Gradient 29.6 mmHg PV Peak Velocity 82.0 cm/s RV Acceleration Time 0.1 s RV Ejection Time 0.3 s RV AcT/ET 0.5 FINDINGS Left Ventricle Normal left ventricular size. LV systolic function is normal with EF of 55-60%. No regional wall motion abnormalities. Grade 1 diastolic dysfunction Right Ventricle The right ventricle is normal in size and function. Right Atrium The right atrium is normal in size. Left Atrium The left atrium is normal in size. Mitral Valve Structurally normal mitral valve without significant stenosis or prolapse. There is trace mitral regurgitation. Aortic Valve Grossly normal without significant stenosis. There is mild aortic regurgitation. Tricuspid Valve Structurally normal tricuspid valve without significant stenosis. Mild tricuspid regurgitation. Pulmonary artery systolic pressure is normal. Pulmonic Valve Not well visualized Pericardium Normal pericardium without effusion. Aorta Normal ascending aorta dimension. IVC CONCLUSIONS LV systolic function is normal with EF of 55-60% Grade 1 diastolic dysfunction Trace mitral regurgitation Mild aortic regurgitation Mild tricuspid regurgitation No comparison studies are available Jonathan Powell MD (Electronically Signed) Final Date: 27 October 2021 18:28 S
== END 2021-10-18 11:38 | disposition home or self-care (01) ==
LOC: RAD 11:37
PROVIDERS: PCP Family Medicine; Visit Provider Internal Medicine
DX: I08.3 Combined rheumatic disorders of mitral, aortic and tricuspid valves (principal); R07.9 Chest pain, unspecified; R06.02 Shortness of breath
CPT/HCPCS: 93306

== ENCOUNTER → 2021-10-27 13:49 | Outpatient (BNVA) | payer MEDICARE, SELFPAY | PROVIDERS: PCP Family Medicine; Visit Provider Internal Medicine | DX: I10 Essential (primary) hypertension (principal); R55 Syncope and collapse; R00.1 Bradycardia, unspecified | CPT/HCPCS: 99213; 99214 ==

== ENCOUNTER 2021-12-22 11:58 | Outpatient (CLI) | payer MEDICARE, SELFPAY ==
--- NOTE | 2021-12-22 12:45 | USCV_ITS ---
Danilo Thornton Age: 71 Gender: M : 1950 Exam Date: 12/22/2021 12:15 Ordering Phys: Jonathan Powell M.D ([email or web address]) Technologist: DIXON Exam Location: [facility] [place] Indication: CAROTID STENOSIS Risk Factors: Previous Vascular Surgery: Right Brachial BP: / Left Brachial BP: / Right Left Velocity (cm/s) Spectral Plaque Velocity (cm/s) Spectral Plaque Syst/Diast Broadening Syst/Diast Broadening 55.00/ 14.40 Prox CCA 79.20 / 22.50 68.40/ 20.80 Mid CCA 80.00 / 24.90 56.10/ 18.20 Distal CCA 73.00 / 25.60 36.40/ 10.10 Prox ICA 101.70/ 27.50 34.70/ 13.90 Mid ICA 83.00 / 24.30 40.60/ 16.70 Distal ICA 41.20 / 18.00 111.90 ECA 104.70 0.59 ICA/CCA 1.27 Vertebral 28.70/ 8.80 cm/s 37.50/ 14.50 cm/s Subclavian 77.70 81.60 FINDINGS Comparison:. 06/06/21. Mixture of calcified and noncalcified plaque in the bifurcations. Mild elevation of velocities, not as significant as on the prior exam. Antegrade vertebral arteries. CONCLUSIONS Bilateral ICA stenosis less than 50%. No progression of stenosis. Mild bilateral plaque . Dr. Rose Shabazz DO (Electronically Signed) Final Date: 22 December 2021 12:52 S
== END 2021-12-22 11:59 | disposition home or self-care (01) ==
LOC: RAD 11:58
PROVIDERS: PCP Family Medicine; Visit Provider Internal Medicine
DX: I65.23 Occlusion and stenosis of bilateral carotid arteries (principal)
CPT/HCPCS: 93880